=== PATIENT | female | born 1975 | race Hispanic/Latino ===

== ENCOUNTER 2017-08-31 11:15 | Day surgery (SDC) | payer BC ==
[2017-08-31 12:07] LABS: Basophils % (Auto) 0.5 % (0.0-1.8); Hematocrit 31.7 % (30.3-42.9); Hemoglobin 10.2 gm/dl (10.1-14.3); Lymphocytes # (Auto) 1.2 K/mm3 (1.2-5.4); Lymphocytes % (Auto) 23.7 % (13.4-35.0); Mean Corpuscular HGB Conc 32 % (30-34); Mean Corpuscular Volume 79 fl (79-97); Monocytes # (Auto) 0.2 K/mm3 (0.0-0.8); Monocytes % (Auto) 4.8 % (0.0-7.3); Platelet Count 194 K/mm3 (140-440); Red Blood Count 4.03 M/mm3 (3.65-5.03); Red Cell Distribution Width 15.4 % (13.2-15.2)
[2017-08-31 12:09] LABS: Mean Corpuscular Hemoglobin 25 pg (28-32)
[2017-08-31 12:18] LABS: INR 0.96 (0.87-1.13)
[2017-08-31 12:19] LABS: Partial Thromboplastin Time 28.1 Sec. (24.2-36.6)
--- NOTE | 2017-08-31 14:32 | Fluoroscopy Report ---
FLUOROSCOPY LUMBAR PUNCTURE History: Pseudotumor cerebri. Description of procedure: Informed consent was obtained. Sterile technique was utilized. 1% lidocaine for skin anesthesia. Lumbar puncture was performed at the L3-4 level under fluoroscopic observation. 2 fluoroscopic images were captured. There was spontaneous return of blood-tinged CSF which cleared quickly. The opening pressure measured 24 cm of water. Approximately 8 cc of CSF fluid was collected in 4 tubes. The patient tolerated the procedure with minor discomfort. IMPRESSION: Successful fluoroscopy guided lumbar puncture. The opening pressure was elevated measuring 24 cm of water.
[2017-08-31 14:48] VITALS: BP 120/58
--- NOTE | 2017-08-31 14:53 | Short Stay Summary ---
Short Stay Documentation Date of service: 08/31/17 - History Principal diagnosis: psuedotumer cerebrii H&P: obtained from office - Allergies and Medications Current Medications: Allergies No Known Allergies Allergy (Verified 08/31/17 11:43) Home Medications Medication Instructions Recorded Confirmed Last Taken Type [place] Carbonate [[place] 300 mg PO QHS 08/31/17 08/31/17 08/30/17 History Carbonate ER] 300mg Venlafaxine HCl [Venlafaxin ER] 75 mg PO DAILY 08/31/17 08/31/17 08/31/17 History 75mg lamoTRIgine [LaMICtal] 150 mg PO BID 08/31/17 08/31/17 08/31/17 History 150mg traZODone [Desyrel] 100 mg PO QHS 08/31/17 08/31/17 08/30/17 History 100mg - Physical exam General appearance: no acute distress - Brief post op/procedure progress note Date of procedure: 08/31/17 Pre-op diagnosis: pseudotumor cerebri Post-op diagnosis: same Procedure: flouro guided lumbar puncture Anesthesia: local Findings: elevated CSF pressure of 24 cm of water Surgeon: ELENA FREEDMAN Estimated blood loss: none Pathology: list (4 csf tubes - 8 cc total) Specimen disposition: to lab Condition: stable - Disposition Condition at discharge: Good Disposition: [id number] TO HOME OR SELFCARE Short Stay Discharge Plan Follow up with: ANKIT THORNTON [employer]OR [Primary Care Provider] - 7 Days
[2017-08-31 15:03] LABS: Glucose,CSF 55 mg/dL
[2017-08-31 18:12] LABS: Appearance,CSF Clear; Basophils CSF 0 %; Red Blood Cell,CSF 0 /mm3 (0-0); White Blood Cell,CSF 0 /mm3 (1-10)
== END 2017-08-31 15:15 | disposition home or self-care (01) ==
LOC: CATHLABREC 11:15 → EDSTATUS 12:00 → CATHLABREC 15:15
PROVIDERS: ATTEND Specialist
DX: G93.2 Benign intracranial hypertension (principal); Z79.01 Long term (current) use of anticoagulants; Z79.899 Other long term (current) drug therapy
CPT/HCPCS: 36415; 62270; 77003; 82947; 84160; 85025; 85610; 85730; 86592; 88112; 89051